=== PATIENT | male | born 1955 | race Caucasian/White ===

== ENCOUNTER 2025-02-18 10:41 | Emergency (ER) | payer MEDICARE, OTHER ==
[~2025-02-18] VITALS: Ht 167.6 cm; Wt 78.0 kg
[2025-02-18] MEDS ORDERED: TAMSULOSIN HCL0.4 MG PO (12:14)
[2025-02-18] MEDS ORDERED: OXYCODONE HCL5 M3 PO (12:14)
[2025-02-18] MEDS ORDERED: LEVETIRACETAM500 MG PO (12:14)
[2025-02-18] MEDS ORDERED: PANTOPRAZOLE SO20 MG PO (12:14)
[2025-02-18] MEDS ORDERED: ATORVASTATIN CA20 MG PO (12:14)
[2025-02-18] MEDS ORDERED: OXYCODONE/APAP 5/325 TAB PO ONE (15:15)
[2025-02-18] MEDS ORDERED: OXYCODONE HCL 5 MG TAB PO ONE (15:30)
[2025-02-18 16:10] VITALS: BP 138/84
== END 2025-02-18 16:10 | disposition home or self-care (01) ==
LOC: ED 10:41
DX: S00.01XA Abrasion of scalp, initial encounter (principal); W18.30XA Fall on same level, unspecified, initial encounter; Z79.899 Other long term (current) drug therapy; Y92.121 Bathroom in nursing home as the place of occurrence of the external cause
CPT/HCPCS: 73000; 73502; 99283; A9270

== ENCOUNTER 2025-02-20 07:04 | Emergency (ER) | payer MEDICARE, OTHER ==
[~2025-02-20] VITALS: Ht 167.6 cm; Wt 79.1 kg
[~2025-02-20 07:04] MED LIST: ATORVASTATIN CA20 MG PO; LEVETIRACETAM500 MG PO; OXYCODONE HCL5 M3 PO; PANTOPRAZOLE SO20 MG PO; TAMSULOSIN HCL0.4 MG PO
--- OUTSIDE RECORDS SUMMARY | 2025-02-20 07:10 | XMS ---
PreManage Notification: IFTIKHAR ASTUDILLO [employer] Manager Events No recent Security Events currently on file CRITERIA MET - [facility] - 2 Visits in 30 Days CARE PROVIDERS There are no care providers on record at this time. To has no Care Guidelines for this patient. [facility]12 MO[facility] NOTE: Visits indicate total known visits. ED/C VISIT TRACKING (12 MO.) [facility] 07[facility] COMPLAINT: - ALTERED LOC 02/18/2025 10:41 [facility] [place] TYPE: Emergency COMPLAINT: - FALL INPATIENT VISIT TRACKING (12 MO.) No inpatient visits to display in this time frame [id number]
[2025-02-20] MEDS ORDERED: IBLOOD GLUCOSE TEST STRIP 1 EA TEST VI ONE (07:15)
[2025-02-20 07:34] LABS: BASOPHILS 0.3 % (0.2-1.2); EOSINOPHILS 0 % (0.8-7.0); LYMPHOCYTES 3.7 % (21.8-53.1); MCH 28.8 PG (25.7-32.2); MCHC 30.6 g/dL (32.3-36.5); MCV 94.1 fL (79.0-92.2); MONOCYTES 11.3 % (5.3-12.2); NEUTROPHILS 84.3 % (34.0-67.9); RBC 2.36 M/uL (4.63-6.08)
[2025-02-20] MEDS ORDERED: LORazepam 2 MG/ML VIAL ONE (07:40)
[2025-02-20] MEDS ORDERED: LORazepam 2 MG/ML VIAL IV ONE ×2 (07:45→08:00)
[2025-02-20 08:04] LABS: ALCOHOL, MEDICAL <3 ng/dL (<3); ALT (SGPT) 18 U/L (14-59); AST (SGOT) 11 U/L (15-37); GLOMERULAR FILTRATION RATE,EST 102 mL/min (>60); PROTEIN, TOTAL 5.7 g/dL (6.4-8.2); UREA NITROGEN 8 mg/dL (7-18)
[2025-02-20 08:34] LABS: ABO O; ANTIBODY SCREEN NEGATIVE; RH POSITIVE
[2025-02-20 09:12] LABS: BLOOD/HGB, URINE SMALL (Negative); KETONE, URINE NEGATIVE (Negative); LEUK ESTERASE, URINE SMALL (negative); NITRITE, URINE POSITIVE (negative)
[2025-02-20 09:29] LABS: BACTERIA, URINE 2+ /hpf (negative); CASTS, URINE NONE SEEN \\lpf; CRYSTALS, URINE NONE SEEN (0-1+); EPITHELIAL CELLS, URINE 0 /lpf (0-1+); REFLEX CULTURE, URINE Yes (No)
[2025-02-20 09:32] LABS: AMPHETAMINES, URINE NEGATIVE (NEGATIVE); BARBITURATES, URINE NEGATIVE (NEGATIVE); BENZODIAZEPINE, URINE NEGATIVE (NEGATIVE); CANNABINOID, URINE NEGATIVE (NEGATIVE); COCAINE, URINE NEGATIVE (NEGATIVE); ECSTASY, URINE NEGATIVE (NEGATIVE); FENTANYL, URINE NEGATIVE (NEGATIVE); METHADONE, URINE NEGATIVE (NEGATIVE); OPIATES, URINE NEGATIVE (NEGATIVE); OXYCODONE, URINE POSITIVE (NEGATIVE); PHENCYCLIDINE, URINE NEGATIVE (NEGATIVE)
[2025-02-20] MEDS ORDERED: TRANEXAMIC ACID IN NACL,ISO-OS 1,000 MG/100 ML PIGGYBACK IV ONE (09:45)
[2025-02-20 10:31] LABS: IS CROSSMATCH COMPATIBLE
[2025-02-20 10:31] LABS: ABO O; RH POSITIVE
[2025-02-20] MEDS ORDERED: KETAMINE in NS 50 MG/5 ML SYR ONE (10:36)
[2025-02-20] MEDS ORDERED: FENTANYL CITRATE-0.9 % NACL/PF 100 ML IV ONE (11:05)
[2025-02-20] MEDS ORDERED: fentaNYL citrate 100 MCG/2 ML VIAL ONE (11:05)
[2025-02-20 11:52] VITALS: BP 89/61
[2025-02-20] MEDS ORDERED: fentaNYL citrate 100 MCG/2 ML VIAL IV ONE (13:30)
[2025-02-20] MEDS ORDERED: KETAMINE in NS 50 MG/5 ML SYR IV ONE (13:30)
[2025-02-20] MEDS ORDERED: SUCCINYLCHOLINE CHLORIDE 20 MG/ML MDV IV ONE (13:30)
--- NOTE | 2025-02-20 14:44 | EKG ---
[facility] [address] [facility] [place], [place] [address] Signed Sinus rhythm with 1st degree AV block Left axis deviation Right bundle branch block Possible Inferior infarct , age undetermined Abnormal ECG No previous ECGs available Confirmed by SUSHILA MOURA MD ([id number]) on 02/20/2025 2:44:20 PM Electronically Signed By: SUSHILA MOURA 02/20/25 1444 PATIENT NAME: IFTIKHAR ASTUDILLO Electrocardiogram DATE OF : 53 PHYSICIAN: SUSHILA MOURA REPORT #: [id number] REPORT IS CONFIDENTIAL AND NOT TO BE RELEASED WITHOUT AUTHORIZATION
[2025-02-21 14:14] LABS: KEPPRA (LEVETIRACETAM) <2.0 ug/mL (10.0-40.0)
== END 2025-02-20 11:52 | disposition short-term general hospital (02) ==
LOC: ED 07:04
PROVIDERS: Emergency Medicine
DX: S32.591A Other specified fracture of right pubis, initial encounter for closed fracture (principal); S32.491A Other specified fracture of right acetabulum, initial encounter for closed fracture; S72.142A Displaced intertrochanteric fracture of left femur, initial encounter for closed fracture; S72.22XA Displaced subtrochanteric fracture of left femur, initial encounter for closed fracture; S32.19XA Other fracture of sacrum, initial encounter for closed fracture; G40.409 Other generalized epilepsy and epileptic syndromes, not intractable, without status epilepticus; Z79.899 Other long term (current) drug therapy; W19.XXXA Unspecified fall, initial encounter
CPT/HCPCS: 31500; 36415; 36430; 51702; 70450; 71045; 71260; 72125; 73502; 74177; 80053; 80177; 80307; 81001; 82140; 82803; 84443; 84484; 85018; 85025; 85060; 86850; 86900; 86901; 86922; 87077; 87088; 87186; 93005; 93010; 94799; 96374; 96375; 99291; A4311; G0480; J0330; J1953; J2060; J3010; J3490; P9016; P9059; Q9967